=== PATIENT | female | born 1965 | race Caucasian/White ===

== ENCOUNTER 2017-08-14 08:59 | Day surgery (SDC) | payer BC ==
[2017-08-14] MEDS ORDERED: LIDOCAINE 2% MDV (20MG/ML) 20ML VIAL IV ONE (09:00)
[2017-08-14] MEDS ORDERED: FENTANYL PF 100MCG/2ML VIAL IV ONE (09:00)
[2017-08-14] MEDS ORDERED: PROPOFOL 10 MG/ML VIAL IV ONE (09:00)
--- NOTE | 2017-08-14 13:10 | Operative Note ---
DATE OF SURGERY: 08/14/2017 OPERATION: ESOPHAGOGASTRODUODENOSCOPY with biopsy. PREOPERATIVE DIAGNOSIS: Intractable dyspepsia despite therapy. POSTOPERATIVE DIAGNOSES: 1. Ulcerative and erosive gastritis. 2. Nonspecific duodenitis. 3. Normal-appearing esophagitis and GE junction. PROCEDURE: After informed consent was obtained from the patient, she was placed in the left lateral decubitus position in the endoscopy suite, sedated and monitored by the department of anesthesia. Once sedated, a well-lubricated [id number] gastroscope was placed in the posterior oropharynx and under direct visualization passed to the proximal esophagus. The endoscope was advanced through the proximal, mid, and distal esophagus. The GE junction, squamocolumnar border, and remainder of the esophagus were unremarkable. No ulcers, erosions, strictures, varices, or mass lesions were seen. The gastric body demonstrated normal distensibility, normal rugal folds. There were adherent flecks of heme in the proximal body. The mid body and antrum demonstrated diffuse erythema. The antrum, however, demonstrated superficial ulcers and erosions and erythema. The duodenal bulb and sweep were then inspected, which demonstrated some linear erythematous changes consistent with nonspecific duodenitis. J-turn views of the proximal stomach were unremarkable. The endoscope was straightened. Multiple antral and distal body biopsies were obtained. No excessive bleeding was noted. The stomach was deflated, the endoscope removed from the patient, no new findings noted. RECOMMENDATIONS: I would suggest the patient be on a [id number] PPI or perhaps even Dexilant 60 mg daily. We will await the results of biopsies particularly to see if there is any evidence of H pylori infection which would require treatment. I would also recommend a repeat upper endoscopy in 8 weeks to assess healing. As always, thank you for allowing me to participate in the healthcare of your patients. CC: MD NALINI Warner
== END 2017-08-14 09:55 | disposition home or self-care (01) ==
LOC: HOP 08:59
PROVIDERS: ATTEND Internal Medicine Gastroenterology
DX: K29.60 Other gastritis without bleeding (principal); K29.80 Duodenitis without bleeding; E78.00 Pure hypercholesterolemia, unspecified
CPT/HCPCS: 43239; 00731; J3010

== ENCOUNTER 2017-10-17 07:59 | Day surgery (SDC) | payer BC ==
[2017-10-17] MEDS ORDERED: PROPOFOL 10 MG/ML VIAL IV ONE (08:00)
[2017-10-17] MEDS ORDERED: LIDOCAINE 2% MDV (20MG/ML) 20ML VIAL IV ONE (08:00)
[2017-10-17] MEDS ORDERED: FENTANYL PF 100MCG/2ML VIAL IV ONE (08:00)
--- NOTE | 2017-10-20 09:40 | Operative Note ---
DATE OF SURGERY: 10/17/2017 SURGEON: Burke Fernandes MD OPERATION: ESOPHAGOGASTRODUODENOSCOPY. INDICATIONS: This is a 52-year-old female with history of erosive gastritis and ulcer who presented for repeat esophagogastroduodenoscopy. POSTOPERATIVE DIAGNOSES: 1. Normal esophagus. 2. Mild gastritis. 3. Normal duodenum. ANESTHESIA: Sedation is per Anesthesia. Pulse oximetry was monitored throughout the procedure to maintain O2 saturation of 90% or greater. Supplemental oxygen was administered via nasal cannula. Cardiac and vital signs were monitored throughout the duration of the procedure, and they were stable. The procedure of esophagogastroduodenoscopy and risks and benefits of the procedure, including the risk of bleeding and perforation, among others, were explained to the patient who voiced understanding and agreed to have the procedure done. Physical examination was performed, and the patient was found stable for sedation. PROCEDURE: The patient was placed in the left lateral position. Sedation was initiated. A plastic bite block was inserted into the oral cavity. The Olympus [id number] gastroscope was introduced into the oral cavity and advanced to the proximal esophagus without difficulty. The esophageal mucosa was carefully examined upon introduction of the gastroscope. The proximal and mid and distal esophageal mucosa appeared normal. The gastroscope was then advanced into the stomach, and surveillance of the stomach revealed mild erythema along the gastric body and antrum but no ulcers or any erosions were noted. The gastroscope was then advanced to the descending duodenum without difficulty. The duodenal bulb and descending duodenal mucosa appeared normal. The gastroscope was then withdrawn into the stomach and retroflexion was performed. There were no other lesions noted. The gastroscope was then straightened and withdrawn while carefully examining the gastric and esophageal mucosa. No other lesions noted. The patient remained with stable vital signs and was transferred to the recovery room. RECOMMENDATIONS: 1. The patient should continue on the Dexilant 60 mg p.o. daily. 2. We will see her back in the office as needed. Thank you for allowing me to participate in the care of your patient. CC: Dr. Ciara GAYLE
== END 2017-10-17 09:20 | disposition home or self-care (01) ==
LOC: HOP 07:59
PROVIDERS: ATTEND Internal Medicine Gastroenterology
DX: K29.00 Acute gastritis without bleeding (principal); K25.9 Gastric ulcer, unspecified as acute or chronic, without hemorrhage or perforation; E78.00 Pure hypercholesterolemia, unspecified
CPT/HCPCS: 43235; 00731; J3010